=== PATIENT | female | born 1950 | race Caucasian/White ===

== ENCOUNTER 2023-01-18 23:35 | Inpatient (IN) | payer MEDICARE, BC ==
[~2023-01-18] VITALS: Ht 157.5 cm; Wt 67.1 kg
--- NOTE | 2023-01-19 00:20 | NUR ---
Pt is noted alert, responsive with family at bedside as she came in C/O Palpitation x3HRS and Denies Chest Pain . Pt care continue.
[2023-01-19] MEDS ORDERED: IV NS 0.9% 1,000 ML BAG IV ONE (00:30)
[2023-01-19] MEDS ORDERED: ADENOSINE 6 MG/2 ML VIAL ONE (01:25)
[2023-01-19] MEDS ORDERED: ADENOSINE 6 MG/2 ML VIAL IVP ONE ×2 (01:30→02:00)
[2023-01-19 01:39] LABS: BASOPHILS # (AUTO) 0.1 K/uL (0.0-0.2); BASOPHILS % (AUTO) 1.2 % (0.0-2.0); EOSINOPHILS % (AUTO) 5.6 % (0.0-6.0); HEMATOCRIT 35 % (33-45); HEMOGLOBIN 11.5 g/dL (11.5-14.8); LYMPHOCYTES # (AUTO) 0.9 K/uL (0.8-4.8); LYMPHOCYTES % (AUTO) 13.7 % (20.0-44.0); MEAN CORPUSCULAR HGB CONC 33 g/dl (31.0-36.0); MEAN CORPUSCULAR VOLUME 93 fL (82-100); MONOCYTES # (AUTO) 0.5 K/uL (0.1-1.30); MONOCYTES % (AUTO) 6.9 % (2.0-12.0); NEUTROPHILS # (AUTO) 4.9 K/uL (1.8-8.9); NEUTROPHILS % (AUTO) 72.6 % (43.0-81.0); PLATELET COUNT (AUTO) 209 K/uL (150-450); RED BLOOD CELL COUNT(AUTO) 3.77 MIL/uL (4.0-5.2); WHITE BLOOD COUNT (AUTO) 6.7 K/uL (4.3-11.0)
--- NOTE | 2023-01-19 01:45 | NUR ---
Adenosine 6mg IVP given for HR 139 after 1Liter NS 0.9 given and EKG done. Pt care continue.
[2023-01-19] MEDS ORDERED: METOPROLOL TARTRATE INJ 5 MG/5 ML AMPUL ONE (02:08)
[2023-01-19 02:16] LABS: ALANINE AMINOTRANSFERASE 85 U/L (12-78); ALBUMIN 3.4 g/dL (3.4-5.0); ALKALINE PHOSPHATASE 203 U/L (46-116); ASPARTATE AMINOTRANSFERASE 75 U/L (15-37); BILIRUBIN,DIRECT 0.1 mg/dL (0.0-0.2); BILIRUBIN,TOTAL 0.4 mg/dL (0.2-1.0); CARBON DIOXIDE 30 mmol/L (21-32); CHLORIDE 104 mmol/L (98-107); CREATININE 0.8 mg/dL (0.6-1.3); GLUCOSE 109 mg/dL (74-106); POTASSIUM 3.7 mmol/L (3.5-5.1); SODIUM SERUM 142 mmol/L (136-145); TOTAL PROTEIN, SERUM 7.1 g/dL (6.4-8.2); UREA NITROGEN, BLOOD 15 mg/dL (7-18)
--- NOTE | 2023-01-19 02:20 | NUR ---
Lopressor 5mg IVP given for HR 140. Pt care continue as she is been monitor closely.
[2023-01-19] MEDS ORDERED: METOPROLOL TARTRATE INJ 5 MG/5 ML AMPUL IV ONE (02:30)
[2023-01-19 02:36] LABS: CALCIUM, SERUM 4.9 mg/dL (8.5-10.1)
[2023-01-19 02:43] LABS: THYROID STIMULATING HORMONE 2.251 uIU/mL (0.358-3.74)
[2023-01-19] MEDS ORDERED: METOPROLOL TARTRATE INJ 5 MG/5 ML AMPUL IVP PRN (03:00)
[2023-01-19] MEDS ORDERED: Calcium Gluconate 0.465 MEQ/ML VIAL IV ONE ×2 (03:00→05:11)
[2023-01-19] MEDS ORDERED: Calcium Gluconate 1GM/10ML 4.65 MEQ in IV NS 0.9% 100 ML IV ONE ×2 (03:00→03:30)
--- NOTE | 2023-01-19 03:03 | NUR ---
covid swab collected and sent to lab.
[2023-01-19 03:08] LABS: MAGNESIUM 2.2 mg/dL (1.8-2.4)
[2023-01-19] MEDS ORDERED: MAGNESIUM HYDROXIDE 30 ML UDC PO PRN (03:30)
[2023-01-19] MEDS ORDERED: ONDANSETRON HCL/PF 4 MG/2 ML VIAL IVP PRN (03:30)
[2023-01-19] MEDS ORDERED: ACETAMINOPHEN 325 MG TABLET PO PRN (03:30)
[2023-01-19] MEDS ORDERED: LEVALBUTEROL HCL NEB 1.25 MG/0.5 ML VIAL.NEB NEB PRN (03:30)
--- NOTE | 2023-01-19 03:33 | NUR ---
Pt care continue as she received Calcium Gluconate 1GM for Calcium Level off 4.9. Pt care continue.
[2023-01-19 03:37] LABS: PHOSPHORUS 0.9 mg/dL (2.5-4.9)
--- NOTE | 2023-01-19 03:39 | NUR ---
Bed 324-2
--- NOTE | 2023-01-19 03:44 | NUR ---
Lab reported Phosphorus off 0.9. Pt care continue.
[2023-01-19] MEDS ORDERED: K PHOS NEUTRAL 250 MG TABLET PO ONE (04:00)
--- NOTE | 2023-01-19 04:01 | NUR ---
Pt care continue as report given to the 3rd Floor RN Norma as pt is been adamitted to Tele Room 324-2 and 3rd RN to follow up with Medications Neutra Phos 250mg PO and needs to be given .
--- NOTE | 2023-01-19 04:22 | NUR ---
Pt is noted off the unuit to the 3RD Floor as she is been admitted to Tele Room 324-2 and family is been updated.
--- NOTE | 2023-01-19 04:25 | NUR ---
ADMISSION 72 y/o female A/O x4 Ambulatory. Skin checked done, no pressure injury. [place] to room, unit, staff. Instructed on how to use call light device for assistance, patient verbalized understanding. Fall precaution maintained.
[2023-01-19 04:51] VITALS: BP 157/85
--- NOTE | 2023-01-19 05:12 | NUR ---
CLARIFICATION ORDER Low Calcium 4.9 Patient was given Calcium Gluconate 1gm in ER prior transferred to unit. Admitting orders Calcium Gluconate IV once due at 0330. Notified COGENERATION OPERATOR Jeferson Silvestre, orders clarified. Give Calcium Gluconate IV once, solar water heater installer made aware. K Phos 250mg PO given, low Phosphorus 0.9.
[2023-01-19 06:08] LABS: BASOPHILS % (AUTO) 0.8 % (0.0-2.0); EOSINOPHILS % (AUTO) 5.6 % (0.0-6.0); HEMATOCRIT 33 % (33-45); HEMOGLOBIN 10.8 g/dL (11.5-14.8); LYMPHOCYTES # (AUTO) 0.8 K/uL (0.8-4.8); LYMPHOCYTES % (AUTO) 12.5 % (20.0-44.0); MEAN CORPUSCULAR HGB CONC 33 g/dl (31.0-36.0); MEAN CORPUSCULAR VOLUME 93 fL (82-100); MONOCYTES # (AUTO) 0.4 K/uL (0.1-1.30); MONOCYTES % (AUTO) 6.3 % (2.0-12.0); NEUTROPHILS # (AUTO) 4.6 K/uL (1.8-8.9); NEUTROPHILS % (AUTO) 74.8 % (43.0-81.0); PLATELET COUNT (AUTO) 195 K/uL (150-450); RED BLOOD CELL COUNT(AUTO) 3.51 MIL/uL (4.0-5.2); WHITE BLOOD COUNT (AUTO) 6.1 K/uL (4.3-11.0)
[2023-01-19 06:51] LABS: ALANINE AMINOTRANSFERASE 82 U/L (12-78); ALBUMIN 2.9 g/dL (3.4-5.0); ALKALINE PHOSPHATASE 195 U/L (46-116); ASPARTATE AMINOTRANSFERASE 76 U/L (15-37); BILIRUBIN,TOTAL 0.4 mg/dL (0.2-1.0); CARBON DIOXIDE 25 mmol/L (21-32); CHLORIDE 109 mmol/L (98-107); CREATININE 0.7 mg/dL (0.6-1.3); GLUCOSE 118 mg/dL (74-106); MAGNESIUM 1.8 mg/dL (1.8-2.4); POTASSIUM 3.3 mmol/L (3.5-5.1); SODIUM SERUM 144 mmol/L (136-145); TOTAL PROTEIN, SERUM 6.3 g/dL (6.4-8.2); UREA NITROGEN, BLOOD 12 mg/dL (7-18)
[2023-01-19 06:58] LABS: CALCIUM, SERUM 4.8 mg/dL (8.5-10.1)
--- NOTE | 2023-01-19 07:05 | NUR ---
CRITICAL LAB RESULT Patient in bed, awake Sinus Rhythm in the bed operator, HR 91. Oxygen sat high 90's in RA. No c/o chest pain, denies palpitation. Low Calcium 4.8 reported by lab. Notified LIGHT INDUSTRIAL Jeferson Silvestre, awaiting new orders. Will endorse to oncoming RN.
--- NOTE | 2023-01-19 07:51 | NUR ---
MACHINE WASHER OPENING NOTES RECEIVED PATIENT LYING IN BED RESTING COMFORTABLY, AOX4, ON ROOM AIR BREATHING WITHOUT ANY DIFFICULTY, NO SOB. ON TELEMONITORING WITH CURRENT READING OF SINUS RHYTHM 64 BPM. DENIES PAIN NOR DISCOMFORT AT THE MOMENT, WITH RIGHT AC G#20 SALINE LOCKED IV ACCESS, PATENT, FLUSHING WELL. PATIENT IS ORIENTED TO ROOM AND STAFF. SAFETY MEASURES IN PLACE: BED IN LOWEST AND LOCKED POSITION, SIDE RAILS X2, CALL LIGHT AND TRAY TABLE WITHIN EASY REACH. WILL CONTINUE TO MONITOR. Addendum: 01/19/23 at 0800 by YESSI CALABRESE RN SINUS RHYTHM - 92
[2023-01-19] MEDS: PANTOPRAZOLE 40 MG TABLET.DR PO SCH (08:14)
[2023-01-19 09:08] VITALS: BP 138/80
[2023-01-19] MEDS ORDERED: POTASSIUM CHLORIDE 20 MEQ TAB.PRT.SR PO SCH ×2 (11:00→11:30)
[2023-01-19 11:13] VITALS: BP 137/81
[2023-01-19 11:53] LABS: IRON, SERUM 33 ug/dl (50-175); TOTAL IRON BINDING CAPACITY 225 ug/dl (250-450)
[2023-01-19] MEDS: CALCIUM CARB 600MG /VIT D 1 EACH TABLET PO SCH (12:07)
--- NOTE | 2023-01-19 13:47 | NUR ---
RN NOTES - RECEIVED A CALL FROM DR ISAI MORALEZ WANTING TO SPEAK TO HOSPITALIST, GIVEN THE NUMBER OF [employer] TO SPEAK TO [facility] AND [facility]. WANTS A COPY OF THE LABS FIRST, INFORMED CHARGE NURSE, RECOMMENDED TO WAIT FOR HOSPITALIST TO CONFIRM FIRST. PATIENT IS AWARE. Addendum: 01/19/23 at 1350 by YESSI CALABRESE RN [address] UTE MORALEZ FAX - [phone] OFFICE NUMBER - [phone] CELLPHONE - [phone]
[2023-01-19 16:13] LABS: BILIRUBIN,URINE NEGATIVE (NEGATIVE); COLOR,URINE YELLOW (YELLOW); LEUKOCYTE ESTERASE ,URINE NEGATIVE (NEGATIVE); NITRITE, URINE NEGATIVE (NEGATIVE); PROTEIN,URINE NEGATIVE (NEGATIVE); UGLUCOSE NEGATIVE (NEGATIVE); UROBILINOGEN,URINE 0.2 EU/dL (0.2)
[2023-01-19 16:16] VITALS: BP 127/78
--- NOTE | 2023-01-19 16:57 | NUR ---
RN NOTES - DAUGHTER AND FATHER WERE AT BEDSIDE WITH DR DELGADO DOING CONSULTATION EARLIER, DAUGHTER ASKED FOR CURRENT LABS AND TREATMENTS DONE TODAY PER PATIENT'S PERMISSION.
--- NOTE | 2023-01-19 18:20 | NUR ---
RN NOTES - LAC IV ACCESS DISLODGE, INSERTED LFA G#22 INTACT PATENT AND FLUSHING WELL
--- NOTE | 2023-01-19 18:21 | NUR ---
RN NOTES - PATIENT MENTIONED FORGOT TO GET THE MEDICATION LIST. WILL CHECK AGAIN TOMORROW. WILL ENDORSE TO CITR[facility] PEELER.
--- NOTE | 2023-01-19 19:45 | NUR ---
GAS ANALYST CLOSING NOTES PATIENT LYING IN BED RESTING COMFORTABLY, AOX4, ON ROOM AIR BREATHING WITHOUT ANY DIFFICULTY, NO SOB. ON TELEMONITORING WITH CURRENT READING OF SINUS RHYTHM 120-130 BPM PATIENT WAS AMBULATING AND UPSET WITH THE ROOMMATE OVER THE TEMPERATURE OF THE ROOM. OFFERED TO MOVE ROOM, AGREED AND COOPERATED, WILL ENDORSE TO FLAME ANNEALING MACHINE SETTER NURSE. DENIED PAIN NOR DISCOMFORT AT THE MOMENT, WITH LEFT FOREARM G#22 SALINE LOCKED IV ACCESS, PATENT, FLUSHING WELL. ALL DUE MEDS GIVEN, ALL NEEDS MET. SAFETY MEASURES MAINTAINED: BED IN LOWEST AND LOCKED POSITION, SIDE RAILS X2, CALL LIGHT AND TRAY TABLE WITHIN EASY REACH. ENDORSED TO FLAME ANNEALING MACHINE SETTER NURSE.
[2023-01-19 20:00] VITALS: BP 117/65
--- NOTE | 2023-01-19 22:44 | NUR ---
BLACK OXIDE COATING EQUIPMENT TENDER OPENING NOTES RECEIVED PATIENT IN BED, ON MODERATE HIGH BACK REST POSITION. PATIENT IS ON ROOM AIR SATURATING WELL, NO SIGNS OF SOB/ NOTED AT THIS TIME, ATTACHED TO TELE MONITORING DEVICE, PATIENT IS AMBULATORY, WITH IV ACCESS AT LFA #22G ON SL PATENT AND INTACT. NO SWELLING OR INFILTRATION NOTED AT THIS TIME. ELECTROLYTES LEVEL MONITORED, AVOID TACHYCARDIA INDUCING AGENT. KEPT BED ON MODERATE HIGH BACK REST POSITION, KEPT SIDE RAILS UP X 2 ALL THE TIME, KEPT CALL LIGHT WITHIN AT REACH, WILL CONTINUE TO MONITOR
[2023-01-20] VITALS (7 sets, daily range): BP systolic 112–134; BP diastolic 70–86
[2023-01-20 06:21] LABS: EOSINOPHILS % (AUTO) 7.8 % (0.0-6.0); HEMATOCRIT 33 % (33-45); HEMOGLOBIN 10.9 g/dL (11.5-14.8); LYMPHOCYTES % (AUTO) 20.8 % (20.0-44.0); MEAN CORPUSCULAR HGB CONC 34 g/dl (31.0-36.0); MEAN CORPUSCULAR VOLUME 90 fL (82-100); MONOCYTES # (AUTO) 0.4 K/uL (0.1-1.30); MONOCYTES % (AUTO) 7.9 % (2.0-12.0); NEUTROPHILS % (AUTO) 62.5 % (43.0-81.0); PLATELET COUNT (AUTO) 189 K/uL (150-450); RED BLOOD CELL COUNT(AUTO) 3.63 MIL/uL (4.0-5.2); WHITE BLOOD COUNT (AUTO) 4.8 K/uL (4.3-11.0)
--- NOTE | 2023-01-20 06:38 | NUR ---
COUNTER PROFESSIONAL CLOSING NOTES PATIENT IS IN BED, ON MODERATE HIGH BACK REST POSITION. PATIENT IS ON ROOM AIR SATURATING WELL, NO SIGNS OF SOB/ NOTED AT THIS TIME, ATTACHED TO TELE MONITORING DEVICE, PATIENT IS AMBULATORY, WITH IV ACCESS AT LFA #22G ON SL PATENT AND INTACT. NO SWELLING OR INFILTRATION NOTED AT THIS TIME. ELECTROLYTES LEVEL MONITORED, AVOID TACHYCARDIA INDUCING AGENT. KEPT BED ON MODERATE HIGH BACK REST POSITION, KEPT SIDE RAILS UP X 2 ALL THE TIME, KEPT CALL LIGHT WITHIN AT REACH, KEPT PATIENT WARM AND COMFORTABLE WILL ENDORSED TO NEXT SHIFT FOR DILIA.
[2023-01-20 06:57] LABS: CARBON DIOXIDE 29 mmol/L (21-32); CHLORIDE 107 mmol/L (98-107); CREATININE 0.7 mg/dL (0.6-1.3); GLUCOSE 88 mg/dL (74-106); MAGNESIUM 1.8 mg/dL (1.8-2.4); PHOSPHORUS 1.6 mg/dL (2.5-4.9); POTASSIUM 3.2 mmol/L (3.5-5.1); SODIUM SERUM 144 mmol/L (136-145); UREA NITROGEN, BLOOD 14 mg/dL (7-18)
--- NOTE | 2023-01-20 07:56 | NUR ---
PHYSICAL METALLURGIST OPENING NOTES PATIENT AWAKE IN BED, A/OX4. ON ROOM AIR SATURATING WELL, NO SIGNS OF SOB/ NOTED AT THIS TIME, ATTACHED TO TELE MONITORING DEVICE CURRENT READING OF SR 86, PATIENT IS AMBULATORY, WITH IV ACCESS AT LFA #22G ON SL PATENT AND INTACT. NO SWELLING OR INFILTRATION NOTED AT THIS TIME. KEPT BED ON MODERATE HIGH BACK REST POSITION, KEPT SIDE RAILS UP X 2 ALL THE TIME, KEPT CALL LIGHT WITHIN AT REACH, KEPT PATIENT WARM AND COMFORTABLE WILL CONTINUE TO MONITOR.
[2023-01-20] MEDS: CALCIUM CARB 600MG /VIT D 1 EACH TABLET PO SCH (08:25)
[2023-01-20] MEDS: PANTOPRAZOLE 40 MG TABLET.DR PO SCH (08:25)
--- NOTE | 2023-01-20 09:06 | NUR ---
WOUND CARE CONSULT: PT REFUSED SKIN ASSESSMENT. PT IS AMBULATORY AND CONTINENT. WILL SEE PRN.
[2023-01-20] MEDS ORDERED: ALBU8.5H8 IH (10:56)
[2023-01-20] MEDS ORDERED: ESCI10TA PO (10:56)
[2023-01-20] MEDS ORDERED: CHOL100043 PO (10:56)
[2023-01-20] MEDS ORDERED: VALS80TA2 PO (10:56)
[2023-01-20] MEDS ORDERED: ATEN25TA PO (10:56)
[2023-01-20] MEDS ORDERED: CALC500T52 PO (11:02)
[2023-01-20] MEDS ORDERED: POTASSIUM CHLORIDE 20 MEQ TAB.PRT.SR PO SCH (13:00)
[2023-01-20] MEDS ORDERED: Calcium Gluconate 0.465 MEQ/ML VIAL IV SCH (13:30)
[2023-01-20] MEDS: CHOLECALCIFEROL 1,000 UNIT TABLET (VIT D3) PO SCH (13:32)
[2023-01-20] MEDS: MAGNESIUM OXIDE 400 MG TABLET PO SCH ×2 (13:32→17:31)
[2023-01-20] MEDS: CALCITRIOL 0.25 MCG CAPSULE PO SCH ×2 (13:51→17:27)
[2023-01-20] MEDS: Calcium Gluconate 1GM/10ML 4.65 MEQ in IV NS 0.9% 100 ML IV SCH ×2 (14:08→17:31)
[2023-01-20] MEDS ORDERED: ALBUTEROL HALF STRENGTH 1.25 MG/3 ML VIAL.NEB NEB PRN (14:30)
[2023-01-20] MEDS ORDERED: NEUTRA PHOS 1 POWD.PACKET PO ONE (16:00)
[2023-01-20] MEDS: ATENOLOL 25 MG TABLET PO SCH (17:28)
--- NOTE | 2023-01-20 18:36 | NUR ---
RN CLOSING NOTE PATIENT AWAKE IN BED, A/OX4. ON ROOM AIR SATURATING WELL, NO SIGNS OF SOB/ NOTED AT THIS TIME, ATTACHED TO TELE MONITORING DEVICE CURRENT READING OF ST 102, PATIENT IS AMBULATORY, WITH IV ACCESS AT LFA #22G ON SL PATENT AND INTACT. NO SWELLING OR INFILTRATION NOTED AT THIS TIME. KEPT BED ON MODERATE HIGH BACK REST POSITION, ALL MEDS GIVEN, KEPT PATIENT CLEAN AND COMFORTABLE. NO SIGNIFICANT CHANGES NOTED ALL THROUGHOUT THE SHIFT. KEPT SIDE RAILS UP X 2 ALL THE TIME, KEPT CALL LIGHT WITHIN AT REACH, KEPT PATIENT WARM AND COMFORTABLE. ENDORSED TO NEXT NURSE.
--- NOTE | 2023-01-20 19:00 | NUR ---
RN OPENING NOTES RECEIVED PT AWAKE AND SITTING ON THE BED WITH DAUGHTER ON BEDSIDE. PT IS A/O X 4, ABLE TO MAKE NEEDS KNOWN. PT IS IN RA TOLERATING WELL, BREATHING EVEN AND UNLABORED @ THIS TIME. PT IV PRESENT ON LEFT FOREARM #22G SALINE LOCK, PATENT, INTACT AND FLUSHES WELL W/ NO S&SX OF INFILTRATION @ SITE NOTED. PT HEAD OF DESIGN IS IN PLACE W/ CURRENT READING OF SINUS TACHY, HR OF 102 BPM. SAFETY MEASURES IN IS PLACE. BED IN LOWEST AND LOCKED POSITION. SIDE RAILS UP X 2. BEDSIDE TABLE AND CALL LIGHT IS EASY REACH. BED ALARM IS ON. WILL CONTINUE TO MONITOR PT ACCORDINGLY.
[2023-01-21] VITALS: BP_SYST 134; BP_SYST 140; BP_SYST 149; BP_DIAS 77; BP_DIAS 79; BP_DIAS 83
[2023-01-21 02:54] VITALS: BP_SYST 143
[2023-01-21 04:00] VITALS: BP 149/77
[2023-01-21 06:24] LABS: BASOPHILS % (AUTO) 0.7 % (0.0-2.0); EOSINOPHILS % (AUTO) 5.5 % (0.0-6.0); HEMATOCRIT 34 % (33-45); HEMOGLOBIN 11.5 g/dL (11.5-14.8); LYMPHOCYTES # (AUTO) 0.9 K/uL (0.8-4.8); MEAN CORPUSCULAR HGB CONC 34 g/dl (31.0-36.0); MEAN CORPUSCULAR VOLUME 90 fL (82-100); MONOCYTES # (AUTO) 0.4 K/uL (0.1-1.30); NEUTROPHILS % (AUTO) 70.8 % (43.0-81.0); PLATELET COUNT (AUTO) 217 K/uL (150-450); RED BLOOD CELL COUNT(AUTO) 3.76 MIL/uL (4.0-5.2); WHITE BLOOD COUNT (AUTO) 5.7 K/uL (4.3-11.0)
[2023-01-21 06:50] LABS: CREATININE 0.7 mg/dL (0.6-1.3); MAGNESIUM 1.8 mg/dL (1.8-2.4); PHOSPHORUS 1.5 mg/dL (2.5-4.9); POTASSIUM 3.2 mmol/L (3.5-5.1)
--- NOTE | 2023-01-21 06:55 | NUR ---
RN CLOSING NOTE PT AWAKE & RESTING COMFORTABLY IN BED. PT IS A/O X 4, RESPONSIVE AND FOLLOWS VERBAL COMMAND. PT IS IN RA W/ NO S & SX OF RESPIRATORY DISTRESS @ THIS TIME. PT IV PRESENT ON LEFT FOREARM #22G SALINE LOCK, PATENT, INTACT AND FLUSHES WELL W/ NO S&SX OF INFILTRATION @ SITE NOTED. PT BIOPROCESS ENGINEER IS IN PLACE W/ CURRENT READING OF SINUS RHYTHM HR 75 BPM. SAFETY MEASURES IN IS PLACE. BED IN LOWEST AND LOCKED POSITION. SIDE RAILS UP X 2. BEDSIDE TABLE AND CALL LIGHT IS EASY REACH. BED ALARM IS ON.WILL ENDORSE PT TO THE NEXT SHIFT FOR DILIA.
[2023-01-21 07:04] LABS: CALCIUM, SERUM 5.4 mg/dL (8.5-10.1)
--- NOTE | 2023-01-21 07:06 | NUR ---
RECEIVED CRITICAL LAB VALUE FOR CALCIUM @ 5.4 FROM PURNIMA GARCIA. WILL ENDORSE IT TO NURSE TRAVIS.
--- NOTE | 2023-01-21 08:04 | NUR ---
RN OPENING NOTE PT SLEEPING IN BED, EASILY AROUSED BY VERBAL STIMULI. A/O X 4, PT IS IN RA W/ NO S & SX OF RESPIRATORY DISTRESS @ THIS TIME. PT IV PRESENT ON LEFT FOREARM #22G SALINE LOCK, PATENT, INTACT AND FLUSHES WELL W/ NO S&SX OF INFILTRATION @ SITE NOTED. PT ASSOCIATE PASTOR IS IN PLACE W/ CURRENT READING OF SINUS RHYTHM HR 81 BPM. SAFETY MEASURES IN IS PLACE. BED IN LOWEST AND LOCKED POSITION. SIDE RAILS UP X 2. BEDSIDE TABLE AND CALL LIGHT IS EASY REACH. BED ALARM IS ON.WILL CONTINUE TO MONITOR.
[2023-01-21] MEDS: PANTOPRAZOLE 40 MG TABLET.DR PO SCH (08:34)
[2023-01-21] MEDS: Calcium Gluconate 1GM/10ML 4.65 MEQ in IV NS 0.9% 100 ML IV SCH (09:05)
[2023-01-21 09:07] LABS: CALCIUM, IONIZED <3.0 mg/dL (4.5-5.6)
[2023-01-21] MEDS: CHOLECALCIFEROL 1,000 UNIT TABLET (VIT D3) PO SCH (09:47)
[2023-01-21 09:48] VITALS: BP 139/70
[2023-01-21] MEDS: ATENOLOL 25 MG TABLET PO SCH (09:48)
[2023-01-21] MEDS: CALCITRIOL 0.25 MCG CAPSULE PO SCH ×2 (09:49→13:11)
[2023-01-21] MEDS: MAGNESIUM OXIDE 400 MG TABLET PO SCH (09:49)
--- NOTE | 2023-01-21 10:00 | NUR ---
RN NOTES PATIENT WAS NON-COMPLIANT WITH MEDICATIONS. FOUND ONE TAB OF POTASSIUM AT BEDSIDE BY NIGHT STAFF, WHEN ASKED PATIENT, SHE STATED SHE DID NOT TOOK THE SAID PILL DATED 01/19/23. NOTIFIED ROSA ANGEL N.P. WILL MONITOR.
[2023-01-21] MEDS ORDERED: NEUTRA PHOS 1 POWD.PACKET PO ONE (11:30)
[2023-01-21] MEDS: POTASSIUM CHLORIDE 20 MEQ TAB.PRT.SR PO SCH ×2 (11:37→12:11)
[2023-01-21] MEDS ORDERED: K PHOS NEUTRAL 250 MG TABLET PO ONE (13:30)
--- NOTE | 2023-01-21 15:13 | NUR ---
DISCHARGED NOTE PATIENT DISCHARGED TO HOME VIA AMA. EXPLAINED RISKS AND BENEFITS TO PATIENT AND PATIENT'S DAUGHTER, VERBALIZED UNDERSTANDING. PATIENT ON RA, NO RESPIRATORY OR CARDIAC DISTRESS NOTED. IV ACCESS REMOVED ASEPTICALLY, ALL BELONGINGS ACCOUNTED TO PATIENT. PATIENT'S DAUGHTER SIGNED AMA FORM. ADVISED PATIENT TO MAKE A FOLLOW UP CONSULTATION TO PCP AND TO CALL 911 OR GO TO THE NEAREST [facility] FOR EMERGENCY CASES. NOTIFIED DONNA HORNER. PATIENT LEFT THE UNIT VIA AMA.
[2023-01-21] MEDS ORDERED: Calcium Gluconate 1GM/10ML 4.65 MEQ in IV NS 0.9% 100 ML IV SCH (17:00)
[2023-01-21 18:06] LABS: T3 TOTAL 110 ng/dL (71-180)
== END 2023-01-21 14:50 | disposition left against medical advice (07) | DRG 641 ==
LOC: ER 23:40 → TELE 01-19 03:48
PROVIDERS: ADMIT Nurse Practitioner Acute Care; ATTEND Nurse Practitioner Acute Care
DX: E83.51 Hypocalcemia (principal); I10 Essential (primary) hypertension; E83.39 Other disorders of phosphorus metabolism; E87.6 Hypokalemia; D63.8 Anemia in other chronic diseases classified elsewhere; E21.2 Other hyperparathyroidism; E88.09 Other disorders of plasma-protein metabolism, not elsewhere classified; J45.909 Unspecified asthma, uncomplicated; Z88.1 Allergy status to other antibiotic agents; Z91.012 Allergy to eggs; Z91.011 Allergy to milk products; Z91.199 Patient's noncompliance with other medical treatment and regimen due to unspecified reason; Z20.822 Contact with and (suspected) exposure to COVID-19
CPT/HCPCS: 36415; 71045-TC; 80048-TC; 80053-TC; 80076-TC; 82310-TC; 82330; 83540-TC; 83605-TC; 83735-TC; 83880; 83970; 84100-TC; 84439-TC; 84443-TC; 84480; 84484-TC; 85025-TC; 87081-TC; 93307-TC; G0378; J0153; J0610; J3490; J7030; J7050